=== PATIENT | male | born 1955 | race Caucasian/White ===

== ENCOUNTER 2019-02-15 11:02 | Emergency (ER) | payer BC, OTHER ==
[2019-02-15 11:31] VITALS: BP 116/80
[2019-02-15] MEDS ORDERED: Tetan/Diph/Pertus SYR(Tdap)* 0.5 ML SYR(BOOSTRIX) use SYR contains LATEX IM ONE (11:50)
[2019-02-15] MEDS ORDERED: Lidocaine 1% MPF ** 5 ML VIAL INJ ONE (12:00)
--- NOTE | 2019-02-15 12:27 | UC ---
Laceration HPI - HPI Summary HPI Summary: Pt presents with c/o laceration to right hand that happened today at work. Pt states he is not up to date on tetanus. Pt has full ROM of hand and fingers, denies numbness or tingling. - History Of Current Complaint Chief Complaint: UCLaceration Stated Complaint: R HAND LACERATION Time Seen by Provider: 02/15/19 11:24 Hx Obtained From: Patient Laceration Location: Hand - right hand mdeial palmar Mechanism Of Injury: Sharp Trauma Onset/Duration: Sudden Onset Severity: Mild Pain Intensity: 4 Aggravating Factors: Movement Related History: Dominant Hand Right - Allergies/Home Medications Allergies/Adverse Reactions: Allergies Allergy/AdvReac Type Severity Reaction Status Date / Time No Known Allergies Allergy Verified 02/15/19 11:31 Home Medications: Home Medications Atorvastatin* [Lipitor 10 MG*] 10 mg PO 1700 02/15/19 [History Confirmed ] Lisinopril [Zestril] 10 mg PO DAILY 02/15/19 [History Confirmed 02/15/19] PMH/Surg Hx/FS Hx/Imm Hx Previously Healthy: Yes - Surgical History Surgical History: None - Family History Known Family History: Positive: Cardiac Disease - Social History Occupation: Employed Full-time Lives: With Family Alcohol Use: Occasionally Substance Use Type: None Smoking Status (MU): Never Smoked Tobacco Have You Smoked in the Last Year: No - Immunization History Vaccination Up to Date: No Review of Systems All Other Systems Reviewed And Are Negative: Yes Constitutional: Positive: Negative Skin: Positive: Other - lacedration right mid medial aspect of palm Eyes: Positive: Negative ENT: Positive: Negative Respiratory: Positive: Negative Cardiovascular: Positive: Negative Gastrointestinal: Positive: Negative Genitourinary: Positive: Negative Motor: Positive: Negative Neurovascular: Positive: Negative Musculoskeletal: Positive: Myalgia - at laceration site Neurological: Positive: Negative Psychological: Positive: Negative Is Patient Immunocompromised?: No Physical Exam Triage Information Reviewed: Yes Appearance: Well-Appearing - pt becam faint with wound cleanse, per Candelaria Prater RN. Vital Signs: Initial Vital Signs Temp 97.3 F 02/15/19 11:26 Pulse 56 02/15/19 11:26 Resp 16 02/15/19 11:26 BP 116/80 02/15/19 11:26 Pulse Ox 99 02/15/19 11:26 Vital Signs Reviewed: Yes Eye Exam: Normal ENT: Positive: Hearing grossly normal Dental Exam: Normal Neck exam: Normal Respiratory: Positive: No respiratory distress Musculoskeletal Exam: Normal Musculoskeletal: Positive: Strength Intact, ROM Intact Neurological Exam: Normal Psychological Exam: Normal Skin Exam: Other - laceration right hand Laceration Repair - Laceration Repair 1 Description: Linear Laceration Size After Repair: Length (cm) - 3, Width (mm) - 2, Depth (mm) - 2 Modified For Repair: No Cleansing Completed Via Routine Prep: Yes Irrigation With Pressure Irrigation Device: Yes Closure Material: Sutures Closure Method: Single Layer Suture Of: Skin Suture Type: Prolene - seven sutures of 4-0 placed simple interrupted. Laceration Course/Dx - Course/Dx Course Of Treatment: seven sutures of 4-0 prolene placed, simple interrupted. Pt tolerated well. 5 cc of 1% lidocaine injected. - Differential Dx - Laceration/Wound Differental Diagnoses: Laceration, Tendon Laceration - Diagnosis Provider Diagnosis: Laceration of right hand Discharge ED - Sign-Out/Discharge Documenting (check all that apply): Patient Departure All imaging exams completed and their final reports reviewed: No Studies - Discharge Plan Condition: Stable Disposition: HOME Prescriptions: Cephalexin CAP* [Keflex 500 CAP*] 500 mg PO Q8H #21 cap Patient Education Materials: Care For Your Stitches (DC), Laceration (ED) Forms: *Work Release Referrals: Jaylon Gonsales MD [Primary Care Provider] - If Needed Additional Instructions: Please return to clinic or see your PCP in 12-14 days to have sutures removed. Please monitor for any signs and symptoms of infection that include but are not limited increased redness, tenderness, discharge, fever, chills, and/or swelling. - Billing Disposition and Condition Condition: STABLE Disposition: Home
== END 2019-02-15 12:50 | disposition home or self-care (01) ==
LOC: UCCORT 11:02
DX: S61.411A Laceration without foreign body of right hand, initial encounter (principal); X58.XXXA Exposure to other specified factors, initial encounter; Y92.9 Unspecified place or not applicable
CPT/HCPCS: 12002; 90471; 90715; 99202; G0463